=== PATIENT | male | born 1940 | race Hispanic/Latino ===

== ENCOUNTER 2016-08-25 08:54 | Outpatient (CLI) | payer MEDICARE ==
--- NOTE | 2016-08-26 13:47 | PET Report ---
PET/CT:08/25/16 08:54:00 CLINICAL: Solitary pulmonary nodule. RADIOPHARMACEUTICAL: 15.57mCi F18-FDG. COMPARISON: None. TECHNIQUE- Following intravenous injection of F-18 FDG and an approximately 60 minute uptake period, CT and PET images from the mid skull to the upper thighs were acquired with the patient in the fasted state. No contrast was administered. The CT protocol used for this PET CT study is designed for attenuation correction and anatomic localization of PET abnormalities. This machine adjuster leader CT is not desired to produce and cannot replace, [id number] diagnostic CT scans with specific imaging protocols for different body parts and indications. Plasma glucose at the time of this test: 104g/dl. The standardized uptake values (SUV) are normalized to patient body weight and indicate the highest activity concentration (SUV max) in a given disease site. FINDINGS: Brain--Physiologic FDG uptake in the visualized regions of the brain. Neck--Physiologic FDG uptake . Chest--Physiologic FDG uptake in mediastinal blood pool and myocardium. Lungs--An irregular left upper lobe lung mass is located at the fissure and measures approximately 5.0 x 3.6 cm in the axial plane. An oval medial cavitating component of the mass measures 2.4 x 3.2 cm and demonstrates mild FDG uptake at its margin with SUV 3.3. The more lateral and angular shaped portion of the mass is not FDG avid. A 5 mm oval non-FDG avid left upper lobe nodule is approximately 3 cm from the dominant left upper lobe mass. An irregular FDG avid opacity in the right lower lobe at the diaphragm measures approximately 1 cm in maximum dimension with issue the 2.3. Pleura/pericardium--No abnormal uptake. No pleural effusion. Thoracic nodes--No abnormal uptake. No lymphadenopathy. Hepatobiliary--No abnormal uptake. Liver background SUV mean, as a reference for comparing FDG studies, is 2.9 . No liver mass. Spleen--No abnormal uptake. Pancreas--No abnormal uptake. Adrenal Glands--No abnormal uptake. Kidneys/Ureters/Bladder--No abnormal uptake. Abdominopelvic Nodes--No abnormal uptake. Bowel/Peritoneum/Mesentery--No abnormal uptake. Pelvic organs--No abnormal uptake. Bones/Soft Tissues--No abnormal uptake. No suspicious bone lesions. Other findings: Probably benign focal FDG uptake in the right pelvis with SUV 4.6 without an identifiable mass. This is probably benign physiologic uptake in bowel. IMPRESSION- 1. A 5 cm cavitary mass of the left upper lobe is partially FDG avid and suspicious for tumor. 2. A 5 mm non-FDG avid left upper lobe lung mass is also suspicious. 3. Probably benign FDG uptake in the right lower lobe at the diaphragm. 4. No suspicious dmitry, hepatic or adrenal uptake. 5. No bone lesions. 6. Probably benign FDG uptake in the right pelvis.
== END 2016-08-25 08:55 | disposition home or self-care (01) ==
LOC: PET 08:54
PROVIDERS: ATTEND Internal Medicine Critical Care Medicine
DX: R91.1 Solitary pulmonary nodule (principal); R91.8 Other nonspecific abnormal finding of lung field
CPT/HCPCS: 78815; 82962; A9552

== ENCOUNTER 2019-08-15 11:21 | Outpatient (CLI) | payer MEDICARE ==
--- NOTE | 2019-08-15 15:54 | PET Report ---
PET sb to mt subsequent INDICATION / CLINICAL INFORMATION: R91.1 SOLITARY PULMONARY NODULE. TRACER: F-18 FDG 9.54 mCi IV injection on 08/15/2019. Blood glucose is 114 mg/dL. TECHNIQUE: Following injection of the above tracer and appropriate delay, PET imaging was performed from the [facility] ll base to the upper thighs. CT imaging was performed the same time for the purposes of anatomic loca lization. All CT scans at this location are performed using CT dose reduction for ALARA by means of a utomated exposure control. COMPARISON: PET/CT 09/24/2016. FINDINGS: HEAD/NECK: Physiologic uptake. CHEST: Enlarging left upper lobe cavitary lesion with thick elder and associated volume loss. Maximal AP josefina meter is 5.8 cm. Maximal transverse diameter is approximately 6.9 cm. Maximal uptake is 6.8 SUV. A se cond focus of ill-defined nodular infiltrate at the right base has maximal SUV of 7.4. No suspicious mediastinal uptake. ABDOMEN/PELVIS: No abnormal uptake. UPPER LEGS: No abnormal uptake. INCIDENTAL CT FINDINGS: Underlying emphysema. IMPRESSION: 1. Enlarging cavitary lesion left upper lobe. This may represent an atypical infection given the degr ee of growth from 2017. 2. Hypermetabolic lesion at the right base posteriorly is ill-defined and may also be inflammatory. Signer Name: Lorne Cotto MD Signed: 08/15/2019 3:50 PM Workstation Name: [id number]
== END 2019-08-15 11:22 | disposition home or self-care (01) ==
LOC: PET 11:21
PROVIDERS: ATTEND Internal Medicine Critical Care Medicine
DX: R91.1 Solitary pulmonary nodule (principal)
CPT/HCPCS: 78815; 82962; A9552